=== PATIENT | female | born 1980 | race Two or more races ===

== ENCOUNTER 2017-09-26 16:59 | Inpatient (IN) | payer MEDICAID, OTHER ==
[~2017-09-26] VITALS: Ht 175.3 cm; Wt 52.4 kg
[2017-09-26] MEDS ORDERED: SODIUM CHLORIDE 0.9% 1,000ML IVBOLUS ONE (17:30)
[2017-09-26 17:49] LABS: BASOPHILS # (AUTO) 0.02 x10^3/uL (0-0.1); BASOPHILS % (AUTO) 0 % (0-1); EOSINOPHILS # (AUTO) 0.19 x10^3/uL (0-0.4); EOSINOPHILS % (AUTO) 2 % (1-7); LYMPHOCYTES # (AUTO) 0.95 x10^3/uL (1-3.4); LYMPHOCYTES % (AUTO) 9 % (22-44); MD NO; MEAN CORPUSCULAR HEMOGLOBIN 25.1 pg (27.0-34.8); MEAN CORPUSCULAR HGB CONC 32.3 g/dL (32.4-35.8); MEAN CORPUSCULAR VOLUME 77.8 fL (80-100); MEAN PLATELET VOLUME 9.9 fL (7.4-10.4); MONOCYTES # (AUTO) 0.25 x10^3/uL (0.2-0.8); MONOCYTES % (AUTO) 2 % (2-9); NEUTROPHILS # (AUTO) 9.61 x10^3/uL (1.8-6.8); NEUTROPHILS % (AUTO) 87 % (42-75); PLATELET COUNT 381 x10^3/uL (130-400); RED BLOOD COUNT 4.84 x10^6/uL (3.82-5.3); RED CELL DISTRIBUTION WIDTH 17.2 % (9.6-15.2)
[2017-09-26] MEDS ORDERED: PLEASE ENTER ALLERGIES MC SCH (18:00)
[2017-09-26] MEDS ORDERED: ZIPRASIDONE 20 MG INJ IM ONE ×2 (18:00→18:04)
[2017-09-26 18:01] LABS: ALANINE AMINOTRANSFERASE 28 U/L (12-78); ALBUMIN 4.2 g/dL (3.4-5.0); ANION GAP 11 mmol/L (5-15); CALCIUM 9.2 mg/dL (8.5-10.1); CHLORIDE 106 mmol/L (98-107); CREATININE 0.64 mg/dL (0.55-1.02)
[2017-09-26 18:03] LABS: ALKALINE PHOSPHATASE 99 U/L (45-117); BILIRUBIN,TOTAL 0.5 mg/dL (0.2-1.0)
[2017-09-26 18:40] LABS: CLOSTRIDIUM DIFFICILE ANTIGEN NEGATIVE; CLOSTRIDIUM DIFFICILE TOXIN NEGATIVE (Negative)
[2017-09-26 21:18] VITALS: BP 135/76
[2017-09-26] MEDS ORDERED: METOCLOPRAMIDE 5 MG/ML, 2ML IVPush PRN (22:30)
[2017-09-26] MEDS ORDERED: morphine SULFATE 10 MG/ML, 1ML IVPush PRN (22:30)
[2017-09-26] MEDS ORDERED: POLYETHYLENE GLYCOL 17 GM PACKET PO PRN (22:30)
[2017-09-26] MEDS ORDERED: DOCUSATE 100 MG CAPSULE PO PRN (22:30)
[2017-09-26] MEDS ORDERED: hydrALAzine 20 MG/ML, 1ML IVPush PRN (22:30)
[2017-09-26] MEDS ORDERED: BISACODYL 10 MG SUPP PR PRN (22:30)
[2017-09-26] MEDS ORDERED: ONDANSETRON ODT 4 MG PO ONE (22:30)
[2017-09-26] MEDS ORDERED: ACETAMINOPHEN 325 MG TABLET PO PRN (22:30)
[2017-09-26] MEDS: QUETIAPINE 200 MG TABLET PO SCH (22:53)
[2017-09-26] MEDS: D5%-0.9% NACL+KCL 20MEQ 1,000 ML IV SCH (22:53)
[2017-09-26] MEDS: HYDROXYCHLOROQUINE 200 MG TABLET PO SCH (22:53)
[2017-09-26] MEDS: PANTOPRAZOLE 40 MG IV IVPush SCH (22:53)
[2017-09-26 23:07] LABS: FREE T4 (FREE THYROXINE) 1.62 ng/dL (0.76-1.46); THYROID STIMULATING HORMONE 0.248 mIU/L (0.358-3.740)
[2017-09-26 23:15] LABS: HEMOGLOBIN A1C 5.5 % (4.2-6.3)
[2017-09-27 03:18] VITALS: BP 111/73
[2017-09-27] MEDS: LEVOTHYROXINE 88 MCG TABLET PO SCH (06:17)
[2017-09-27 06:25] LABS: ALANINE AMINOTRANSFERASE 23 U/L (12-78); ALBUMIN 3.6 g/dL (3.4-5.0); ANION GAP 10 mmol/L (5-15); CALCIUM 8.6 mg/dL (8.5-10.1); CHLORIDE 109 mmol/L (98-107); CREATININE 0.54 mg/dL (0.55-1.02)
[2017-09-27 06:27] LABS: ALKALINE PHOSPHATASE 83 U/L (45-117); BILIRUBIN,TOTAL 0.4 mg/dL (0.2-1.0); CHOL/HDL RATIO 3.4; CHOLESTEROL, TOTAL 164 mg/dL (140-239); HDL CHOL % 29 % (28-40); HDL CHOLESTEROL (DIRECT) 48 mg/dL (40-60); LDL CHOLESTEROL,CALCULATED 105 mg/dL (54-169); TRIGLYCERIDES 55 mg/dL (50-200); VLDL CHOLESTEROL 11 mg/dL (0-25)
[2017-09-27 06:28] LABS: BASOPHILS # (AUTO) 0.01 x10^3/uL (0-0.1); BASOPHILS % (AUTO) 0 % (0-1); EOSINOPHILS % (AUTO) 0 % (1-7); LDL/HDL RATIO 2.2 (0.5-3.0); LYMPHOCYTES # (AUTO) 1.02 x10^3/uL (1-3.4); LYMPHOCYTES % (AUTO) 15 % (22-44); MD NO; MEAN CORPUSCULAR HEMOGLOBIN 25.3 pg (27.0-34.8); MEAN CORPUSCULAR HGB CONC 32.7 g/dL (32.4-35.8); MEAN CORPUSCULAR VOLUME 77.5 fL (80-100); MEAN PLATELET VOLUME 10.1 fL (7.4-10.4); MONOCYTES % (AUTO) 5 % (2-9); NEUTROPHILS # (AUTO) 5.27 x10^3/uL (1.8-6.8); NEUTROPHILS % (AUTO) 80 % (42-75); PLATELET COUNT 309 x10^3/uL (130-400); RED BLOOD COUNT 4.69 x10^6/uL (3.82-5.3); RED CELL DISTRIBUTION WIDTH 17.6 % (9.6-15.2)
[2017-09-27 06:29] LABS: HEMOGRAM NOTE RECHECKED
[2017-09-27] MEDS: D5%-0.9% NACL+KCL 20MEQ 1,000 ML IV SCH (06:35)
[2017-09-27 06:38] VITALS: BP 103/48
[2017-09-27] MEDS: SERTRALINE 50MG TABLET PO SCH (08:21)
[2017-09-27] MEDS: HYDROXYCHLOROQUINE 200 MG TABLET PO SCH ×2 (08:21→20:21)
[2017-09-27] MEDS: ONDANSETRON ODT 4 MG PO PRN ×3 (08:21→22:19)
[2017-09-27] MEDS: PROMETHAZINE 25 MG/ML, 1ML IM PRN ×3 (11:50→20:20)
[2017-09-27 12:39] VITALS: BP 108/56
[2017-09-27] MEDS: OXYcodone IR 5MG TABLET PO PRN (17:47)
[2017-09-27 19:20] VITALS: BP 111/64
[2017-09-27 19:39] LABS: MICROSCOPIC INDICATED
[2017-09-27 19:49] LABS: CULTURE INDICATED? NO
[2017-09-27] MEDS ORDERED: ALBUTEROL SULFATE 2.5 MG/3 ML ONE (19:54)
[2017-09-27] MEDS: PANTOPRAZOLE 40 MG IV IVPush SCH (20:21)
[2017-09-27] MEDS ORDERED: ALBUTEROL SULFATE 2.5 MG/3 ML NPPB PRN (20:30)
[2017-09-27] MEDS: QUETIAPINE 200 MG TABLET PO SCH (22:16)
[2017-09-28 02:01] VITALS: BP 104/60
[2017-09-28] MEDS: PROMETHAZINE 25 MG/ML, 1ML IM PRN ×3 (03:58→14:21)
[2017-09-28] MEDS: OXYcodone IR 5MG TABLET PO PRN ×2 (03:58→07:29)
[2017-09-28] MEDS: LEVOTHYROXINE 88 MCG TABLET PO SCH (05:03)
[2017-09-28 05:42] LABS: MEAN CORPUSCULAR HEMOGLOBIN 25.3 pg (27.0-34.8); MEAN CORPUSCULAR HGB CONC 32.4 g/dL (32.4-35.8); MEAN PLATELET VOLUME 9.7 fL (7.4-10.4); PLATELET COUNT 259 x10^3/uL (130-400); RED BLOOD COUNT 4.06 x10^6/uL (3.82-5.3); RED CELL DISTRIBUTION WIDTH 17.7 % (9.6-15.2)
[2017-09-28 05:47] LABS: ALBUMIN 3.2 g/dL (3.4-5.0); ANION GAP 7 mmol/L (5-15); CALCIUM 8.4 mg/dL (8.5-10.1); CHLORIDE 111 mmol/L (98-107); CREATININE 0.61 mg/dL (0.55-1.02)
[2017-09-28 05:48] LABS: % IRON SATURATION 17 % (20-55); IRON LEVEL 47 mcg/dL (50-170); TOTAL IRON BINDING CAPACITY 276 mcg/dL (250-450)
[2017-09-28 06:12] LABS: MD YES
[2017-09-28 06:14] LABS: ANISOCYTOSIS 1+; BASOS#(MANUAL) 0.06 x10^3/uL (0-0.1); BASOS% (MANUAL) 1 % (0-1); EOS% (MANUAL) 9 % (1-7); LYMPH#(MANUAL) 2.31 x10^3/uL (1-3.4); LYMPHS% (MANUAL) 42 % (22-44); MICROCYTOSIS 1+; MONOS#(MANUAL) 0.33 x10^3/uL (0.3-2.7); MONOS% (MANUAL) 6 % (2-9); OVALOCYTES 1+; SEG#(MANUAL) 2.31 x10^3/uL (1.8-6.8); SEGS% (MANUAL) 42 % (42-75)
[2017-09-28 06:15] LABS: <PLATELET ESTIMATE> ADEQUATE; <PLT MORPHOLOGY> NORMAL PLT MORPH
[2017-09-28 07:20] VITALS: BP 120/81
[2017-09-28] MEDS: HYDROXYCHLOROQUINE 200 MG TABLET PO SCH (07:29)
[2017-09-28] MEDS: SERTRALINE 50MG TABLET PO SCH (07:29)
[2017-09-28] MEDS ORDERED: SUMATRIPTAN 50 MG TABLET PO PRN (08:30)
[2017-09-28] MEDS: ONDANSETRON 2MG/ML, 2ML IVPush PRN ×2 (11:40→17:45)
[2017-09-28 12:40] VITALS: BP 111/65
[2017-09-28] MEDS ORDERED: D5%-LACTATED RINGERS 1,000 ML IV SCH (14:30)
[2017-09-28] MEDS ORDERED: METOCLOPRAMIDE 5 MG/ML, 2ML IVPush PRN (16:30)
[2017-09-28] MEDS ORDERED: PANTOPROZOLE 40MG TABLET PO SCH (18:00)
== END 2017-09-28 18:03 | disposition home or self-care (01) | DRG 103 ==
LOC: ED 20:21 → EDIP 20:26 → ED 20:49 → 3NE 21:00
PROVIDERS: ADMIT Internal Medicine; ATTEND Internal Medicine
DX: G43.A0 Cyclical vomiting, in migraine, not intractable (principal); M32.9 Systemic lupus erythematosus, unspecified; D68.69 Other thrombophilia; D68.0 Von Willebrand disease; E86.0 Dehydration; E03.9 Hypothyroidism, unspecified; E87.6 Hypokalemia; F32.9 Major depressive disorder, single episode, unspecified; F99 Mental disorder, not otherwise specified; Z95.0 Presence of cardiac pacemaker
CPT/HCPCS: 36415; 74018; 76700; 80048; 80053; 80061; 81001; 82040; 83036; 83540; 83550; 83690; 83735; 84100; 84439; 84443; 85025; 87324; 89055; 94640; 96360; 96372; J2405; J2550; J3486; Q0162; C9113; J2765; J3480; J7030